=== PATIENT | male | born 1955 | race Caucasian/White ===

== ENCOUNTER → 2016-07-30 | Day surgery (SDC) | payer OTHER ==
--- NOTE | 2016-07-27 12:59 | History & Physical Pre-Op ---
General Information and HPI History of Present Illness: Dinh is a 60-year-old male status post right first MPJ fusion, who now complains of painful retained hardware. The patient underwent the procedure last May at [place] and has persistent pain, especially at the plantar aspect of the joint. The patient failed conservative interventions, including rest and immobilization in addition to dispersion pads. The patient now presents for preoperative surgical consultation. Allergies/Medications Allergies: Coded Allergies: Penicillins (CHILDHOOD 07/25/16) Home Med list Albuterol Sulfate (Proair Hfa) 90 MCG HFA.AER.AD 2 PUF INH Q4-6 PRN PRN ASTHMA (Reported) Aspirin (Ecotrin*) 81 MG TABLET.DR 1 TAB PO 3X PER WEEK CAD (Reported) Clopidogrel Bisulfate (Plavix) 75 MG TABLET 1 TAB PO DAILY CAD (Reported) Famotidine 20 MG TABLET 1 TAB PO DAILY GERD (Reported) Levothyroxine Sodium (Synthroid) 75 MCG TABLET 1 TAB PO DAILY HYPOTHYROID ( Reported) Metoprolol Succ XL (Toprol Xl) 50 MG TAB CAD (Reported) Umeclidinium Brm/Vilanterol Tr (Anoro Ellipta 62.5-25 Mcg INH) 62.5 MCG-25 MCG/ ACTUATION BLST.W.DEV ASTHMA (Reported) Past History Medical History Cardiovascular: CAD, myocardial infarction Respiratory: COPD Surgical History Pertinent Surgical History: hernia repair-incisional (angioplasty with stenting) Review of Systems Review of Systems: Unremarkable except for that noted in history of present illness Exam & Diagnostic Data Physical Exam: Lungs clear bilaterally. Heart sounds rate and rhythm regular. Lower extremity physical exam demonstrates intact pedal pulses bilaterally. Both dorsalis pedis and posterior tibial arteries are palpable bilaterally. Patient without any sensory motor deficits. Pain with palpation overlying the dorsum of the right first metatarsophalangeal joint. Prominent hardware identified with point tenderness identified plantarly at the level of the metatarsophalangeal joint. Assessment/Plan Assessment/Plan: Painful retained hardware right foot. A lengthy discussion reviewing both surgical and conservative options was held the patient at bedside and the patient elects to go forward with surgery despite the risks. As Ranked By This Provider Problem List: 1. Pain due to internal orthopedic prosthetic devices, implants and grafts, initial encounter Attending MD Review Statement Attending Statement Attending MD Statement: examined this patient
[~2016-07-30] VITALS: Ht 177.8 cm; Wt 129.3 kg
[~2016-07-30] MED LIST: ANORO ELLIPTA1 EACH; ASPIRIN EC81 M1 PO; FAMOTIDINE20 M1 PO; PLAVIX75 M1 PO; PROAIR HFA8.5 GM INH; SYNTHROID75 MCG PO; TOPROL XL50 M1 PO
--- NOTE | 2016-08-07 09:55 | Operative Report ---
Operative/Inv Procedure Report Surgery Date: 07/30/16 Name of Procedure: 1 Removal of retained painful hardware right foot Pre-Operative Diagnosis: 1 Painful retained hardware right foot Post-Operative Diagnosis: The same Estimated Blood Loss: scant Surgeon/Textile Examiner: LEXI JANG DPM Anesthesia: moderate sedation, block Operative/Procedure Note Note: After obtaining informed consent, the patient was brought to the OR and placed on the operating table in the supine position. The patient was then securely fastened to the operating table with a safety belt. After administration of IV sedation, 10cc of 0.5% marcaine plain was infiltrated about the right ankle. A well-padded ankle tourniquet was placed about the right ankle. 2 grams of Ancef were delivered intra-venously. The foot and ankle were then scrubbed, prepped and drapped in the usual aseptic manner. The right lower extremity with then elevated to exsanguinate the limb and the tourniquet was inflated to 250mmHG. Attention was then directed to the dorsal aspect of the right foot, were a 5cm linear incision was deepened into the subcutaneous layer with a 15-blade. The wound was then deepened to the periosteum, which was incised and reflexted, exposing 5 screws and a plate. The hardware was removed and sent for pathologic inspection. The wound was then irrigated with normal saline and the deep tissues were closed with 3-0 vicryl and the skin reapproximated with 3-0 nylon. The incision was then dressed with xeroform, 4x4s and kerlix, followed by an RUTH wrap. The patient was noted to tolerated the procedure and anesthesia well and was transported from the OR to recovery with vital signs stable and vascular status intact to all digits right foot.
== END ==
LOC: STS 02:29
DX: T84.84XA Pain due to internal orthopedic prosthetic devices, implants and grafts, initial encounter (principal); J44.9 Chronic obstructive pulmonary disease, unspecified; E03.9 Hypothyroidism, unspecified; I25.2 Old myocardial infarction; Z98.61 Coronary angioplasty status; Z95.810 Presence of automatic (implantable) cardiac defibrillator
CPT/HCPCS: J1885; J2250